=== PATIENT | male | born 1985 | race Caucasian/White ===

== ENCOUNTER 2018-06-17 12:11 | Emergency (ER) | payer OTHER ==
[~2018-06-17] VITALS: Ht 188 cm; Wt 86.2 kg
[2018-06-17] MEDS ORDERED: Veetids 500500 MG PO (13:08)
== END 2018-06-17 13:13 | disposition home or self-care (01) ==
LOC: ER 12:11
DX: K04.7 Periapical abscess without sinus (principal); K02.9 Dental caries, unspecified; Z87.891 Personal history of nicotine dependence
CPT/HCPCS: 99282

== ENCOUNTER → 2021-02-15 | Outpatient (CLI) | payer OTHER ==
[~2021-02-15] MED LIST: Veetids 500500 MG PO
== END ==
LOC: LAB SHORT 15:30
DX: R30.0 Dysuria (principal)
CPT/HCPCS: 87077; 87086; 87147; 87186